=== PATIENT | female | born 1990 | race Caucasian/White ===

== ENCOUNTER 2018-09-20 16:25 | Emergency (ER) | payer OTHER ==
[~2018-09-20] VITALS: Ht 154.9 cm; Wt 63.5 kg
--- NOTE | ~2018-09-20 | EKG ---
[address] [place] [address] ELECTROCARDIOGRAM REPORT Name: GUY THOMSON [id number] Admission: 09/20/18 Attend Phys: Discharge: 09/20/18 Date of : [birth year] Report #: [id number] THIS REPORT FOR: //name// [facility] ED Test Date: 2018-09-20 Test Time: 17:46:51 Pat Name: GUY THOMSON Department: Room: Gender: F Medical Assistant: : 1990 Requested By: Kiki Saleh Order Number: [id number] MD: Tone Granados Measurements Intervals [place] Rate: 73 P: 39 [place]: 123 QRS: 73 QRSD: 84 T: 26 QT: 370 QTc: 408 Interpretive Statements Sinus rhythm Normal tracing No previous ECG available for comparison Electronically Signed On 09-21-2018 7:51:21 WASTE WATER WORKER by Tone Granados [email or web address] <ELECTRONICALLY SIGNED> By: Tone Granados MD, [facility] 09/21/18 0751 [id number] Tone Granados MD, FACC /EPI
[~2018-09-20 16:25] MED LIST: ACYCLOVIR 400400 MG PO; CYCLOBENZAPRINE5 MG PO; MOBIC7.5 MG PO; ULTRAM 50MG TAB50 MG PO
[2018-09-20 16:43] LABS: URINE BILIRUBIN NEGATIVE (Negative); URINE BLOOD NEGATIVE (Negative); URINE CLARITY CLEAR; URINE COLOR YELLOW; URINE GLUCOSE-RANDOM* NEGATIVE (Negative); URINE KETONES NEGATIVE (Negative); URINE LEUKOCYTES-REFLEX NEGATIVE (Negative); URINE NITRITE-REFLEX NEGATIVE (Negative); URINE PROTEIN (DIPSTICK) NEGATIVE (Negative); URINE UROBILINOGEN 0.2 E.U./dl (0.2-1.0)
[2018-09-20 17:12] LABS: ABSOLUTE NEUTROPHILS 4.3 thou/uL (1.4-8.2); BASOPHILS 1.2 % (0.0-2.0); EOSINOPHILS 1.6 % (0.0-3.0); HEMATOCRIT 39.1 % (37.0-47.0); HEMOGLOBIN 13.2 gm/dL (12.0-15.0); LYMPHOCYTES 30.9 % (24.0-44.0); MCH 30.1 pg (26.0-34.0); MCHC 33.7 g/dL (28.0-37.0); MCV 89.2 fL (80.0-100.0); MONOCYTES 8.6 % (1.0-8.0); PLATELET COUNT 212 thou/uL (150-400); POLYS 57.7 % (36.0-66.0); RBC 4.38 mil/uL (4.20-5.00); RDW 13.6 % (10.5-14.5); WBC 7.5 thou/uL (4.0-11.0)
[2018-09-20 17:18] LABS: CALCIUM 9.1 mg/dL (8.5-10.1); CREATININE 0.7 mg/dL (0.6-1.0); POTASSIUM 3.8 mmol/L (3.5-5.1)
[2018-09-20 17:24] LABS: ALBUMIN 3.8 g/dL (3.4-5.0); TOTAL BILIRUBIN 0.3 mg/dL (<0.1-1.0)
[2018-09-20] MEDS ORDERED: OMEPRAZOLE20 M2 PO (18:02)
[2018-09-20] MEDS ORDERED: CARAFATE 1 GM TA1 G1 PO (18:02)
[2018-09-20 18:13] LABS: PROTIME 10.2 Seconds (9.3-11.4)
[2018-09-20 18:20] VITALS: BP 107/60
== END 2018-09-20 18:21 | disposition home or self-care (01) ==
LOC: ER 16:25
PROVIDERS: Physician Assistant; Student in an Organized Health Care Education/Training Program
DX: R10.13 Epigastric pain (principal); R42 Dizziness and giddiness; F17.210 Nicotine dependence, cigarettes, uncomplicated; Z88.4 Allergy status to anesthetic agent; Z91.09 Other allergy status, other than to drugs and biological substances

== ENCOUNTER 2019-06-05 18:29 | Emergency (ER) | payer OTHER ==
[~2019-06-05] VITALS: Ht 154.9 cm; Wt 65.8 kg
[~2019-06-05 18:29] MED LIST changes: +CARAFATE 1 GM TA1 G1 PO; +OMEPRAZOLE20 M2 PO
[2019-06-05 18:30] VITALS: BP 107/43
[2019-06-05] MEDS ORDERED: BACTRIM DS TAB1 EACH PO (19:40)
== END 2019-06-05 19:48 | disposition home or self-care (01) ==
LOC: ER 18:29
DX: L03.211 Cellulitis of face (principal); L98.9 Disorder of the skin and subcutaneous tissue, unspecified; F17.210 Nicotine dependence, cigarettes, uncomplicated; F10.10 Alcohol abuse, uncomplicated; Z88.8 Allergy status to other drugs, medicaments and biological substances

== ENCOUNTER 2019-11-05 08:58 | Emergency (ER) | payer BC ==
[~2019-11-05] VITALS: Ht 154.9 cm; Wt 63.5 kg
[~2019-11-05 08:58] MED LIST changes: +BACTRIM DS TAB1 EACH PO
[2019-11-05 10:01] LABS: BASOPHILS 0.6 % (0.0-2.0); HEMATOCRIT 39.6 % (37.0-47.0); HEMOGLOBIN 13.1 gm/dL (12.0-15.0); LYMPHOCYTES 20.4 % (24.0-44.0); MCH 29.4 pg (26.0-34.0); MCHC 33.1 g/dL (28.0-37.0); MONOCYTES 7.3 % (1.0-8.0); PLATELET COUNT 203 thou/uL (150-400); POLYS 70.7 % (36.0-66.0); RBC 4.45 mil/uL (4.20-5.00); RDW 13.4 % (10.5-14.5); WBC 5.7 thou/uL (4.0-11.0)
[2019-11-05 10:02] LABS: ANION GAP 10 mmol/L (7-16); BUN 8 mg/dL (7-18); CALCIUM 9.5 mg/dL (8.5-10.1); CHLORIDE 102 mmol/L (98-107); CO2 27 mmol/L (21-32); CREATININE 0.7 mg/dL (0.6-1.0); GLUCOSE 90 mg/dL (74-106); POTASSIUM 3.6 mmol/L (3.5-5.1); SODIUM 139 mmol/L (136-145)
[2019-11-05 10:11] LABS: TROPONIN-I <0.06 ng/mL (<0.06)
[2019-11-05] MEDS ORDERED: VALIUM5 MG PO (12:50)
[2019-11-05 12:51] VITALS: BP 108/58
[2019-11-05 13:20] LABS: URINE BLOOD 3+ (Negative); URINE CLARITY CLOUDY; URINE COLOR RED; URINE GLUCOSE-RANDOM* NEGATIVE (Negative); URINE KETONES NEGATIVE (Negative); URINE LEUKOCYTES-REFLEX 2+ (Negative); URINE NITRITE-REFLEX POSITIVE (Negative); URINE PROTEIN (DIPSTICK) 2+ (Negative); URINE SPECIFIC GRAVITY <= 1.005 (1.005-1.035); URINE UROBILINOGEN 0.2 E.U./dl (0.2-1.0)
[2019-11-05 13:21] LABS: ICTOTEST (BILI CONFIRMATORY) Negative (Negative); URINE BILIRUBIN NEGATIVE (Negative)
[2019-11-05 13:40] LABS: BACTERIA-REFLEX 1-9 Few /HPF (None Seen); CASTS None Seen /LPF (None Seen); CRYSTALS None Seen /LPF (None Seen); SQUAMOUS 4-10 Moderate /LPF (0-3); URINE RBC >20 Many /HPF (0-2); URINE WBC-REFLEX 6-15 Few /HPF (0-5)
--- NOTE | 2019-11-06 09:57 | EKG ---
[place] [address] [address] [facility] [place] [address] ELECTROCARDIOGRAM REPORT Name: GUY THOMSON [id number] Admission: 11/05/19 Attend Phys: Discharge: 11/05/19 Date of : [birth year] Report #: [id number] THIS REPORT FOR: //name// [facility] ED Test Date: 2019-11-05 Test Time: 09:57:21 Pat Name: GUY THOMSON Department: Room: Gender: F Registered Nurse Bone Marrow Transplant: [facility] : 1990 Requested By: Agueda Borrero Order Number: [id number] MD: Tone Granados Measurements Intervals [place] Rate: 66 P: 30 CT: 126 QRS: 62 QRSD: 85 T: 9 QT: 380 QTc: 399 Interpretive Statements Sinus rhythm Normal tracing Compared to ECG 09/20/2018 17:46:51 No significant changes Electronically Signed On 11-06-2019 9:56:35 PHARMACOGENETICIST by Tone Granados [email or web address] <ELECTRONICALLY SIGNED> By: Tone Granados MD, [facility] 11/06/19 [phone] 0957 Tone Granados MD, FACC /EPI
== END 2019-11-05 12:51 | disposition home or self-care (01) ==
LOC: ER 08:58
PROVIDERS: Emergency Medicine
DX: G43.909 Migraine, unspecified, not intractable, without status migrainosus (principal); M79.10 Myalgia, unspecified site; F17.210 Nicotine dependence, cigarettes, uncomplicated; Z88.8 Allergy status to other drugs, medicaments and biological substances; Z91.09 Other allergy status, other than to drugs and biological substances; Z79.899 Other long term (current) drug therapy

== ENCOUNTER 2020-09-28 12:28 | Emergency (ER) | payer BC ==
[~2020-09-28] VITALS: Ht 154.9 cm; Wt 63.5 kg
[~2020-09-28 12:28] MED LIST changes: +VALIUM5 MG PO
[2020-09-28 13:30] VITALS: BP 112/70
== END 2020-09-28 14:39 | disposition home or self-care (01) ==
LOC: ER 12:28
DX: U07.1 COVID-19 (principal); G43.909 Migraine, unspecified, not intractable, without status migrainosus; F17.210 Nicotine dependence, cigarettes, uncomplicated; Z79.899 Other long term (current) drug therapy; Z88.8 Allergy status to other drugs, medicaments and biological substances

== ENCOUNTER 2021-07-03 07:49 | Emergency (ER) | payer BC ==
[~2021-07-03] VITALS: Ht 154.9 cm; Wt 63.5 kg
[2021-07-03 09:39] LABS: ABSOLUTE NEUTROPHILS 3.7 thou/uL (1.4-8.2); BASOPHILS 0.6 % (0.0-2.0); EOSINOPHILS 0.8 % (0.0-3.0); HEMOGLOBIN 12.9 gm/dL (12.0-15.0); LYMPHOCYTES 28.4 % (24.0-44.0); MCH 29.7 pg (26.0-34.0); MCHC 33.1 g/dL (28.0-37.0); MCV 89.9 fL (80.0-100.0); MONOCYTES 7.6 % (1.0-8.0); PLATELET COUNT 187 thou/uL (150-400); POLYS 62.6 % (36.0-66.0); RBC 4.33 mil/uL (4.20-5.00); RDW 13.9 % (10.5-14.5)
[2021-07-03 09:46] LABS: CALCIUM 8.8 mg/dL (8.5-10.1); CREATININE 0.8 mg/dL (0.6-1.0); POTASSIUM 3.9 mmol/L (3.5-5.1)
[2021-07-03] MEDS ORDERED: CEFDINIR300 MG PO (11:57)
[2021-07-03] MEDS ORDERED: BACTRIM DS TAB1 EACH PO (11:57)
[2021-07-03 12:15] VITALS: BP 111/54
== END 2021-07-03 12:15 | disposition home or self-care (01) ==
LOC: ER 07:49
PROVIDERS: Emergency Medicine
DX: L03.213 Periorbital cellulitis (principal); F17.210 Nicotine dependence, cigarettes, uncomplicated; Z88.8 Allergy status to other drugs, medicaments and biological substances; Z88.4 Allergy status to anesthetic agent; Z91.09 Other allergy status, other than to drugs and biological substances; Z91.018 Allergy to other foods

== ENCOUNTER 2021-12-14 07:43 | Emergency (ER) | payer BC ==
[~2021-12-14] VITALS: Ht 154.9 cm; Wt 63.5 kg
[~2021-12-14 07:43] MED LIST changes: +CEFDINIR300 MG PO
--- NOTE | 2021-12-14 08:37 | EKG ---
[address] [address] ELECTROCARDIOGRAM REPORT Name: GUY THOMSON Room #: [facility]..#: [id number] Admission: Attend Phys: Discharge: Date of : [birth year] Report #: [id number] [facility] ED Test Date: 2021-12-14 Test Time: 08:04:58 Pat Name: GUY THOMSON Department: Room: Gender: [employer] Retail Service Merchandiser: : 1990 Requested By: Arben Singh Order Number: [id number] MD: Tone Granados Measurements Intervals [place] Rate: 67 P: 46 [place]: 122 QRS: 74 QRSD: 82 T: 35 QT: 382 QTc: 404 Interpretive Statements Sinus rhythm Normal tracing Compared to ECG 11/05/2019 09:57:21 No significant changes Electronically Signed On 12-14-2021 8:37:04 DAT INSTRUCTOR by Tone Granados [email or web address] <ELECTRONICALLY SIGNED> By: Tone Granados MD, [facility] 12/14/21 0837 [id number] 0804 Tone Granados MD, FACC /EPI
[2021-12-14 09:42] VITALS: BP 135/78
== END 2021-12-14 09:43 | disposition home or self-care (01) ==
LOC: ER 07:43
DX: R07.89 Other chest pain (principal); G43.909 Migraine, unspecified, not intractable, without status migrainosus; F17.210 Nicotine dependence, cigarettes, uncomplicated; Z79.899 Other long term (current) drug therapy; Z88.5 Allergy status to narcotic agent; Z88.6 Allergy status to analgesic agent; Z88.8 Allergy status to other drugs, medicaments and biological substances